=== PATIENT | female | born 1990 | race Caucasian/White ===

== ENCOUNTER 2020-02-12 17:58 | Emergency (ER) | payer SELFPAY ==
[~2020-02-12] VITALS: Ht 152.4 cm; Wt 65.8 kg
--- NOTE | 2020-02-12 18:00 | NUR ---
CHEY 39/PD SEEN RUNNING IN A CONSTRUCTION SITE ACTING BIZZARE. TO ER BED 15, HOOKED TO MONITOR, WARM BLANKET PROVIDED, AWAITING MD SR
--- NOTE | 2020-02-12 18:15 | NUR ---
VAMSI SINGH AT BEDSIDE
[2020-02-12 18:54] LABS: BASOPHILS # (AUTO) 0.1 /CMM (0.0-0.2); BASOPHILS % (AUTO) 0.5 % (0.0-2.0); EOSINOPHILS % (AUTO) 1.8 % (0.0-6.0); HEMATOCRIT 36 % (33-45); HEMOGLOBIN 11.7 g/dL (11.5-14.8); LYMPHOCYTES % (AUTO) 29.7 % (20.0-44.0); MEAN CORPUSCULAR HGB CONC 32 g/dl (31.0-36.0); MEAN CORPUSCULAR VOLUME 86 fL (82-100); MONOCYTES # (AUTO) 0.9 /CMM (0.1-1.30); MONOCYTES % (AUTO) 8.7 % (2.0-12.0); NEUTROPHILS % (AUTO) 59.3 % (43.0-81.0); PLATELET COUNT (AUTO) 259 /CMM (150-450); RED BLOOD CELL COUNT(AUTO) 4.22 MIL/uL (4.0-5.2); WHITE BLOOD COUNT (AUTO) 10.2 K/uL (4.3-11.0)
[2020-02-12] MEDS ORDERED: OLANZAPINE 5 MG TABLET PO ONE (19:00)
[2020-02-12 19:03] LABS: CALCIUM, SERUM 8.4 mg/dL (8.5-10.1); CARBON DIOXIDE 27 mmol/L (21-32); CHLORIDE 108 mmol/L (98-107); CREATININE 0.8 mg/dL (0.6-1.3); GLUCOSE 86 mg/dL (74-106); POTASSIUM 3.8 mmol/L (3.5-5.1); SODIUM SERUM 142 mmol/L (136-145); UREA NITROGEN, BLOOD 11 mg/dL (7-18)
[2020-02-12] MEDS ORDERED: OLANZAPINE 5 MG TABLET ONE (19:13)
--- NOTE | 2020-02-12 19:19 | NUR ---
PATIENT NOT ABLE TO PROVIDE URINE SAMPLE YET. VAMSI TARANGO
[2020-02-12 19:21] LABS: ALANINE AMINOTRANSFERASE 19 U/L (12-78); ALBUMIN 3.6 g/dL (3.4-5.0); ALCOHOL, BLOOD < 3 mg/dL (0-0); ALKALINE PHOSPHATASE 59 U/L (46-116); ASPARTATE AMINOTRANSFERASE 20 U/L (15-37); BILIRUBIN,DIRECT 0.2 mg/dL (0.0-0.2); BILIRUBIN,TOTAL 0.7 mg/dL (0.2-1.0); TOTAL PROTEIN, SERUM 6.9 g/dL (6.4-8.2)
[2020-02-12 19:24] LABS: ACETAMINOPHEN < 10 ug/ml (10-30); SALICYLATE < 2.0 mg/dL (2.8-20.0)
--- NOTE | 2020-02-12 19:26 | NUR ---
REPORT GIVEN TO HECTOR MONTEZ RN FOR RADHA
[2020-02-12 19:36] LABS: APPEARANCE,URINE Clear (CLEAR); BILIRUBIN,URINE Negative (NEGATIVE); BLOOD, URINE Trace-lysed Ery/uL (NEGATIVE); COLOR,URINE Yellow (YELLOW); KETONES,URINE Trace (NEGATIVE); LEUKOCYTE ESTERASE ,URINE Small (NEGATIVE); NITRITE, URINE Negative (NEGATIVE); PH,URINE 6.5 (5.0-8.0); PROTEIN,URINE Negative (NEGATIVE); UGLUCOSE Negative (NEGATIVE)
[2020-02-12 19:46] LABS: BACTERIA,URINE Few /HPF (None Seen); RBC,URINE 2-3/HPF /HPF (0-2)
[2020-02-12 19:47] LABS: MUCUS,URINE Few /LPF (None Seen); SQUAMOUS EPITHELIAL CELL,UR Moderate /HPF (None Seen); URINE AMORPHOUS URATE Few /HPF (None Seen)
--- NOTE | 2020-02-13 01:15 | NUR ---
PT RESTING COMFORTABLY IN BED. VITAL SIGNS STABLE. NO ACUTE DISTRESS NOTED AT THIS TIME. SITTER AT BEDSIDE
--- NOTE | 2020-02-13 10:07 | NUR ---
PT MEDICALLY AND PSYCH CLEARED. DENIES SI/HI. AMBULATORY W/ STEADY GAIT. DISCHARGE IN STABLE CONDITION.
[2020-02-13 10:08] VITALS: BP 120/77
== END 2020-02-13 10:09 | disposition home or self-care (01) ==
LOC: ER 18:03
DX: F23 Brief psychotic disorder (principal); F22 Delusional disorders; E86.0 Dehydration; F15.10 Other stimulant abuse, uncomplicated
CPT/HCPCS: 36415; 80048; 80076; 80305; 80307; 80329; 81001; 84702; 84703; 85025; 87086; 99283; G0480; 81000-TC